=== PATIENT | female | born 1950 | race Caucasian/White ===

== ENCOUNTER → 2016-06-23 | Outpatient (CLI) | payer BC ==
[~2016-06-23] MED LIST: AMX500 PO; CHLO0.12 MT; CHOLTAB3 PO; FLAX SEED; ONDA8TAB62 SL; PRCUNK PO; [UNRECOGNIZED DRUG - OTHER]; [UNRECOGNIZED DRUG - OTHER]
--- NOTE | 2016-06-23 13:30 | MAMMOGRAPHY REPORT ---
BILATERAL DIGITAL SCREENING MAMMOGRAM WITH CAD: 06/23/2016 CLINICAL HISTORY: Routine screening. Patient has no complaints. TECHNIQUE: Current study was also evaluated with a Computer Aided Detection (CAD) system. Bilatera l CC and MLO views were obtained. COMPARISON: Comparison is made to exams dated: 06/08/2015 mammogram, 06/06/2013 mammogram, 06/06/2014 mammogram, 06/05/2012 mammogram, 05/31/2011 mammogram, and 05/24/2010 mammogram - [facility]. BREAST COMPOSITION: The tissue of both breasts is heterogeneously dense, which may obscure small ma sses. FINDINGS: No suspicious masses, calcifications, or areas of architectural distortion are noted in e ither breast. There has been no significant interval change compared to prior exams. IMPRESSION: ACR BI-RADS CATEGORY 1: NEGATIVE There is no mammographic evidence of malignancy. A 1 year screening mammogram is recommended. The p atient will receive written notification of the results. Approximately 10% of breast cancers are not detected with mammography. A negative mammographic repor t should not delay biopsy if a clinically suggestive mass is present. Sherin Renner M.D. ah/:06/23/2016 12:00:12 Personal Companion: Nataliia EVANS(Ang)(M), [facility] letter sent: Normal 1/2 BI-RADS Code: ACR BI-RADS Category 1: Negative
== END | disposition home or self-care (01) ==
LOC: C.MAMM 11:07
PROVIDERS: ATTEND Family Medicine
DX: Z12.31 Encounter for screening mammogram for malignant neoplasm of breast (principal)

== ENCOUNTER → 2016-10-11 | Outpatient (CLI) | payer BC ==
--- NOTE | 2016-10-11 13:14 | DIAGNOSTIC IMAGING REPORT ---
RETROPERITONEAL COMPLETE CLINICAL HISTORY: Chronic kidney disease. Ulcerative colitis. COMPARISON STUDY: CT of the abdomen and pelvis November 28, 2005. FINDINGS: The right kidney measures 10.1 x 3.9 x 4.5 cm and the left measures 10.7 x 5.6 x 5.8 cm. No renal masses are identified by sonography. There is mild right renal cortical thinning. Note is made of a 7 mm calculus within the upper pole of the right kidney. Both ureteral jets were identified. IMPRESSION: 1. No hydronephrosis. 2. Mild right renal cortical thinning. 3. Right-sided nephrolithiasis. Electronically signed by: Mono Donovan M.D. 10/11/2016 1:12 PM Dictated Date/Time: 10/11/2016 1:09 PM
== END | disposition home or self-care (01) ==
LOC: C.ULTR 12:33
PROVIDERS: ATTEND Family Medicine
DX: K51.90 Ulcerative colitis, unspecified, without complications (principal); G57.60 Lesion of plantar nerve, unspecified lower limb; N20.0 Calculus of kidney

== ENCOUNTER → 2017-07-11 | Outpatient (CLI) | payer BC ==
--- NOTE | 2017-07-11 15:24 | MAMMOGRAPHY REPORT ---
BILATERAL DIGITAL SCREENING MAMMOGRAM TOMOSYNTHESIS WITH CAD: 07/11/2017 CLINICAL HISTORY: Routine screening. Patient has no complaints. TECHNIQUE: Breast tomosynthesis in addition to standard 2D mammography was performed. Current study was also evaluated with a Computer Aided Detection (CAD) system. COMPARISON: Comparison is made to exams dated: 06/23/2016 mammogram, 06/08/2015 mammogram, 06/06/2014 ma mmogram, 06/06/2013 mammogram, 06/05/2012 mammogram, and 05/31/2011 [facility] - [facility]. BREAST COMPOSITION: The tissue of both breasts is heterogeneously dense, which may obscure small mas ses. FINDINGS: The parenchymal pattern is unchanged. No developing mass, architectural distortion or clus ter of suspicious microcalcifications is seen in either breast. IMPRESSION: ACR BI-RADS CATEGORY 2: BENIGN There is no mammographic evidence of malignancy. A 1 year screening mammogram is recommended. The pa tient will receive written notification of the results. Approximately 10% of breast cancers are not detected with mammography. A negative mammographic report should not delay biopsy if a clinically suggestive mass is present. Kimberly Madrid M.D. ay/:07/11/2017 13:51:30 Cryptographic Clerk: Chelle EVANS(Ang)(Rachael), [facility] letter sent: Normal 1/2 BI-RADS Code: ACR BI-RADS Category 2: Benign
== END | disposition home or self-care (01) ==
LOC: C.MAMM 11:20
PROVIDERS: ATTEND Family Medicine
DX: Z12.31 Encounter for screening mammogram for malignant neoplasm of breast (principal)

== ENCOUNTER → 2017-09-26 | Outpatient (CLI) | payer BC ==
--- NOTE | 2017-09-26 13:36 | DIAGNOSTIC IMAGING REPORT ---
L HIP UNILATERAL MIN 2 VIEWS, R HIP UNILATERAL MIN 2 VIEWS HISTORY: 67 years-old Female BILATERAL HIP PAIN chronic bilateral hip pain COMPARISON: Right hip radiographs 03/24/2016 TECHNIQUE: 2 views of the bilateral hips for a total of 4 images FINDINGS: RIGHT: Moderate degenerative changes about the femoral acetabular joint without acute fracture or dislocation. The imaged right hemipelvis appears intact. Calcifications about the pelvis suggest phleboliths. Degenerative changes of the pubic symphysis. LEFT: No acute fracture or dislocation. Moderate degenerative changes about the left femoral acetabular joint. Imaged left hemipelvis appears intact. No opaque foreign body. IMPRESSION: Moderate degenerative changes without acute fracture or dislocation. The above report was generated using voice recognition software. It may contain grammatical, syntax or spelling errors. Electronically signed by: Tristan Giang M.D. 09/26/2017 1:35 PM Dictated Date/Time: 09/26/2017 1:32 PM
== END | disposition home or self-care (01) ==
LOC: C.RDSM 13:17
PROVIDERS: ATTEND Internal Medicine Gastroenterology
DX: M25.551 Pain in right hip (principal); M25.552 Pain in left hip